=== PATIENT | male | born 1970 | race Caucasian/White ===

== ENCOUNTER 2019-09-21 12:18 | Emergency (ER) | payer MEDICAID ==
[~2019-09-21] VITALS: Ht 172.7 cm; Wt 100.0 kg
[~2019-09-21 12:18] MED LIST: HYDR-4383 PO; VALTREX PO
[2019-09-21 12:38] VITALS: BP 127/83
[2019-09-21] MEDS ORDERED: ACYC-202 PO (13:07)
[2019-09-21] MEDS ORDERED: MUPI22OI30 TOP (13:07)
== END 2019-09-21 13:15 | disposition home or self-care (01) ==
LOC: ER 12:19
DX: N48.89 Other specified disorders of penis (principal); G89.29 Other chronic pain; Z98.890 Other specified postprocedural states; Z88.5 Allergy status to narcotic agent; Z79.899 Other long term (current) drug therapy
CPT/HCPCS: 99281

== ENCOUNTER 2021-07-29 08:56 | Emergency (ER) | payer MEDICAID ==
[~2021-07-29] VITALS: Ht 185.4 cm; Wt 104.5 kg
[~2021-07-29 08:56] MED LIST changes: +LIDOcaine 1% W/epiNEPHrine 1:100,000 20ml vial ONE
[2021-07-29] MEDS ORDERED: ondansetron/PF 4mg/2ml inj IV ONE (09:25)
[2021-07-29] MEDS ORDERED: iohexol 300mg/ml 100ml inj. ONE (09:33)
[2021-07-29] MEDS ORDERED: ibuprofen tablet 400 MG TABLET PO ONE (11:10)
[2021-07-29 11:30] VITALS: BP 152/108
== END 2021-07-29 11:37 | disposition home or self-care (01) ==
LOC: ER 08:57
DX: S01.81XA Laceration without foreign body of other part of head, initial encounter (principal); S01.511A Laceration without foreign body of lip, initial encounter; G89.29 Other chronic pain; Z98.890 Other specified postprocedural states; Z88.5 Allergy status to narcotic agent; Z79.899 Other long term (current) drug therapy; W19.XXXA Unspecified fall, initial encounter; Y93.89 Activity, other specified; Y92.89 Other specified places as the place of occurrence of the external cause; Y99.8 Other external cause status
CPT/HCPCS: 12013; 70450; 70486; 71260; 72040; 74177; 99285; Q9967

== ENCOUNTER 2021-08-04 15:30 | Emergency (ER) | payer MEDICAID ==
[~2021-08-04] VITALS: Ht 185.4 cm; Wt 104.5 kg
[~2021-08-04 15:30] MED LIST changes: -LIDOcaine 1% W/epiNEPHrine 1:100,000 20ml vial ONE
[2021-08-04 15:42] VITALS: BP 127/81
== END 2021-08-04 16:15 | disposition home or self-care (01) ==
LOC: ER 15:30
DX: S01.81XD Laceration without foreign body of other part of head, subsequent encounter (principal); G89.29 Other chronic pain; M54.9 Dorsalgia, unspecified; Z48.00 Encounter for change or removal of nonsurgical wound dressing; X58.XXXD Exposure to other specified factors, subsequent encounter
CPT/HCPCS: 99281

== ENCOUNTER 2022-05-29 09:18 | Emergency (ER) | payer MEDICAID ==
[~2022-05-29] VITALS: Ht 182.9 cm; Wt 110.5 kg
[2022-05-29] MEDS ORDERED: CIPR7.5D EACH EAR (10:16)
[2022-05-29 10:19] VITALS: BP 167/112
== END 2022-05-29 10:25 | disposition home or self-care (01) ==
LOC: ER 09:19
DX: H66.91 Otitis media, unspecified, right ear (principal); G89.29 Other chronic pain; M54.9 Dorsalgia, unspecified; Z88.5 Allergy status to narcotic agent; Z79.2 Long term (current) use of antibiotics; Z79.899 Other long term (current) drug therapy
CPT/HCPCS: 99283

== ENCOUNTER 2025-01-14 12:40 | Emergency (ER) | payer MEDICAID ==
[~2025-01-14] VITALS: Ht 182.9 cm; Wt 96.4 kg
[~2025-01-14 12:40] MED LIST changes: +CIPR7.5D EACH EAR
[2025-01-14 16:53] VITALS: TEMP 97.3
[2025-01-14 17:33] VITALS: BP 122/76; PULSE 91; RESP 16; O2SAT 98
== END 2025-01-14 17:35 | disposition home or self-care (01) ==
LOC: ER 12:40
DX: K45.8 Other specified abdominal hernia without obstruction or gangrene (principal); F17.200 Nicotine dependence, unspecified, uncomplicated; G89.29 Other chronic pain; M54.9 Dorsalgia, unspecified; Z88.5 Allergy status to narcotic agent; Z79.899 Other long term (current) drug therapy; Z98.890 Other specified postprocedural states
CPT/HCPCS: 74176; 99284

== ENCOUNTER 2025-02-05 16:50 | Emergency (ER) | payer MEDICAID ==
[~2025-02-05] VITALS: Ht 182.9 cm; Wt 87.5 kg
[2025-02-05 17:02] VITALS: TEMP 97.6
[2025-02-05 19:57] LABS: BASOPHILS # (AUTO) 0.1 X10'3 (0-0.2); BASOPHILS % (AUTO) 0.9 % (0-1); EOSINOPHILS # (AUTO) 0.4 X10'3 (0-0.9); EOSINOPHILS % (AUTO) 4.1 % (0-6); HEMATOCRIT 45.1 % (42.0-52.0); HEMOGLOBIN 15.3 g/dl (14.0-17.9); LYMPHOCYTES # (AUTO) 2.4 X10'3 (1.1-4.8); MEAN CORPUSCULAR HEMOGLOBIN 30.4 PG (27.0-31.0); MEAN CORPUSCULAR VOLUME 89.5 FL (78-98); MEAN PLATELET VOLUME 9.6 FL (7.4-10.4); MONOCYTES # (AUTO) 0.7 X10'3 (0-0.9); MONOCYTES % (AUTO) 7.6 % (2-12); NEUTROPHILS # (AUTO) 5.4 X10'3 (1.8-7.7); NEUTROPHILS % (AUTO) 60.4 % (42-75); PLATELET COUNT 242 X10'3 (140-440); RED BLOOD COUNT 5.04 X10'6 (4.70-6.10); RED CELL DISTRIBUTION WIDTH 13.8 % (11.5-14.5)
[2025-02-05 20:09] LABS: ALANINE AMINOTRANSFERASE 37 U/L (12-78); ALBUMIN/GLOBULIN RATIO 1.1 (1.1-1.5); ALKALINE PHOSPHATASE 109 IU/L (46-116); ANION GAP 7 (8-16); BILIRUBIN,TOTAL 0.4 MG/DL (0.1-1.0); BLOOD UREA NITROGEN 14 MG/DL (7-18); BUN/CREATININE RATIO 16.5 (10.0-20.0); CHLORIDE 109 MMOL/L (99-107); CREATININE 0.85 MG/DL (0.60-1.10); GLUCOSE 95 MG/DL (70-104); SODIUM 145 MMOL/L (135-145); TOTAL CARBON DIOXIDE 29.1 MMOL/L (24-32); TOTAL PROTEIN 7.7 G/DL (6.4-8.2); eCRCL 108 ML/MIN; eGFR > 90 ML/MIN
[2025-02-05 20:17] LABS: ASPARTATE AMINO TRANSFERASE 29 U/L (10-37); POTASSIUM 4.4 MMOL/L (3.5-5.1)
[2025-02-05 21:51] VITALS: BP 131/78; PULSE 110; RESP 18; O2SAT 96
== END 2025-02-05 21:55 | disposition home or self-care (01) ==
LOC: ER 16:50
DX: K43.9 Ventral hernia without obstruction or gangrene (principal); F17.200 Nicotine dependence, unspecified, uncomplicated; G89.29 Other chronic pain; M54.9 Dorsalgia, unspecified; Z90.49 Acquired absence of other specified parts of digestive tract; Z88.5 Allergy status to narcotic agent; Z79.899 Other long term (current) drug therapy; Z98.890 Other specified postprocedural states
CPT/HCPCS: 36415; 80053; 85025; 99284

== ENCOUNTER 2025-02-27 05:42 | Inpatient (IN) | payer MEDICAID ==
--- NOTE | 2025-02-25 15:36 | ELECTROCARDIOGRAPH REPORT ---
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 GRICELDA Millan Measurements Intervals [place] Rate: 79 P: 49 CA: 162 QRS: -35 QRSD: 99 T: 36 QT: 371 QTc: 426 Interpretive Statements Sinus rhythm Probable left atrial enlargement Abnormal R-wave progression, early transition Inferior infarct, old Electronically Signed On 02-25-2025 17:38:[address] GRICELDA Millan Please click the below link to view image of tracing.
[2025-02-25 16:07] LABS: BASOPHILS # (AUTO) 0.1 X10'3 (0-0.2); BASOPHILS % (AUTO) 1.1 % (0-1); EOSINOPHILS # (AUTO) 0.3 X10'3 (0-0.9); EOSINOPHILS % (AUTO) 4.2 % (0-6); LYMPHOCYTES % (AUTO) 26.2 % (21-51); MEAN CORPUSCULAR HEMOGLOBIN 29.9 PG (27.0-31.0); MEAN CORPUSCULAR HGB CONC 33.6 g/dL (33.0-36.5); MEAN CORPUSCULAR VOLUME 89.1 FL (78-98); MEAN PLATELET VOLUME 9.2 FL (7.4-10.4); MONOCYTES # (AUTO) 0.7 X10'3 (0-0.9); MONOCYTES % (AUTO) 9.9 % (2-12); NEUTROPHILS # (AUTO) 4.4 X10'3 (1.8-7.7); NEUTROPHILS % (AUTO) 58.6 % (42-75); PRE OP HEMATOCRIT 46.7 % (42.0-52.0); PRE OP HEMOGLOBIN 15.7 g/dL (14.0-17.9); PRE OP PLATELET COUNT 279 X10'3 (140-440); PRE OP WHITE BLOOD COUNT 7.5 10'3 (4.8-10.8); RED BLOOD COUNT 5.24 X10'6 (4.70-6.10); RED CELL DISTRIBUTION WIDTH 13.7 % (11.5-14.5)
[2025-02-25 16:09] LABS: BILIRUBIN,URINE NEGATIVE (Neg); CLARITY,URINE CLEAR (Clear); COLOR,URINE YELLOW (Yellow); GLUCOSE, URINE NEGATIVE (Neg); KETONES,URINE NEGATIVE (Neg); LEUKOCYTE ESTERASE ,URINE NEGATIVE (Neg); NITRITES, URINE NEGATIVE (Neg); OCCULT BLOOD,URINE NEGATIVE (Neg); PH,URINE 5.5 (4.8-8.0); PROTEIN,URINE NEGATIVE (Neg); UROBILINOGEN,URINE 0.2 E.U/dL (0.2-1.0)
[2025-02-25 16:14] LABS: UA COLLECTION TYPE CLN CATCH MIDSTREAM
[2025-02-25 16:24] LABS: PRE OP PROTIME 10.6 SECONDS (9.0-12.0)
[2025-02-25 16:31] LABS: ALBUMIN 3.9 G/DL (3.4-5.0); ALKALINE PHOSPHATASE 113 IU/L (46-116); BLOOD UREA NITROGEN 16 MG/DL (7-18); BUN/CREATININE RATIO 17.6 (10.0-20.0); CALCIUM 9.1 MG/DL (8.5-10.1); CHLORIDE 105 MMOL/L (99-107); CREATININE 0.91 MG/DL (0.60-1.10); PRE OP ALT 40 U/L (30-65); PRE OP ANION GAP 10 (8-16); PRE OP AST 18 U/L (10-37); PRE OP BILIRUB, TOTAL 0.3 MG/DL (0.0-1.0); PRE OP GLUCOSE 80 MG/DL (70-104); PRE OP SODIUM 144 MMOL/L (135-145); TOTAL CARBON DIOXIDE 29.5 MMOL/L (24-32); TOTAL PROTEIN 7.7 G/DL (6.4-8.2); eGFR 86 ML/MIN
[~2025-02-27] VITALS: Ht 182.9 cm; Wt 105.1 kg
[2025-02-27] VITALS (27 sets, daily range): BP systolic 105–148; BP diastolic 71–102; PULSE 79–111; RESP 11–28; TEMP 97.7–98.9; O2SAT 90–98
[2025-02-27] MEDS: ceFAZolin 2gm in dextrose, iso 50 ML IV ONE (05:30)
[~2025-02-27 05:42] MED LIST changes: -CIPR7.5D EACH EAR; -HYDR-4383 PO; +NO HOME MEDS; -VALTREX PO
[2025-02-27] MEDS ORDERED: BUPIVAcaine 2.5mg/ml inj 50ml vial (contains preservative) ONE (06:44)
--- NOTE | 2025-02-27 06:47 | RADIOLOGY REPORT ---
EXAM: DI CHEST,SINGLE VIEW HISTORY: CXR - PRE-OP COMPARISON: None TECHNIQUE: Portable AP view of the chest was performed. FINDINGS: No pneumothorax, consolidative infiltrates, or pulmonary edema. Emphysematous changes are better lupis acterized on prior CT scan. The heart is not enlarged. There is thoracic degenerative disc disease. IMPRESSION: Emphysema without evidence of acute intrathoracic process.
[2025-02-27] MEDS: famotidine 20mg tablet PO ONE (06:57)
[2025-02-27] MEDS: ringers solution, lacted 1,000 ML IV SCH ×2 (06:58→08:15)
[2025-02-27] MEDS ORDERED: midazolam 1 mg/ML 2ml injection ONE (08:02)
[2025-02-27] MEDS ORDERED: fentaNYL /PF 50mcg/ml 5ml ampule ONE (08:03)
[2025-02-27] MEDS ORDERED: propofol inj 20 ML IV ONE (08:03)
[2025-02-27] MEDS ORDERED: rocuronium 10mg/ml inj IV ONE ×2 (08:05→11:06)
[2025-02-27] MEDS ORDERED: ondansetron/PF 4mg/2ml inj IV PRN ×2 (08:15→12:15)
[2025-02-27] MEDS ORDERED: hydrALAZINE 20mg/ml inj. IV PRN (08:15)
[2025-02-27] MEDS ORDERED: labetalol 20mg/4ml (5mg/ml) syringe IV PRN (08:15)
[2025-02-27] MEDS ORDERED: HYDROmorphone/PF 0.2 MG/ML SYRINGE IV PRN (08:15)
[2025-02-27] MEDS ORDERED: meperidine/PF 25mg/ml syringe IV PRN (08:15)
--- NOTE | 2025-02-27 08:28 | RADIOLOGY REPORT ---
Exam: CT CT ABDOMEN PELVIS History: Pain Comparison Study: CT CT ABDOMEN PELVIS on DOS: 01/14/25 Technique: Multidetector spiral CT of the abdomen was performed from lung bases to pubic symphysis. I maging was performed without IV contrast. Axial, coronal and sagittal multiplanar reformats were obta ined from the axial data set by the technologist. Radiation Dose : 1. Abdomen/Pelvis: CTDIvol 33.6 mGy, DLP 1723.1 mGy*cm. Findings: Evaluation of solid organs is limited due to lack of intravenous contrast use. Lung Bases: No acute or significant lung base finding. Normal heart size. No pleural or pericardial effusion. Liver: The liver is normal in size. No focal lesions. Gallbladder and Biliary Tree: Unremarkable Spleen: Unremarkable Pancreas: The pancreas is grossly normal in appearance. Adrenal Glands: Unchanged left adrenal adenoma measures 3.2 cm. Right adrenal gland is unremarkable. Kidneys: Kidneys are grossly normal without calculi or hydronephrosis. Bladder: Grossly unremarkable for degree of distention. Bowel: The stomach is grossly normal in appearance. Small bowel and colon are normal in caliber and d istribution. The appendix is not visualized; however, no secondary findings of acute appendicitis brian ntified. Ascites: Absent Lymphadenopathy: No mesenteric, retroperitoneal or periportal lymphadenopathy. Abdominal Wall and Mesentery: Moderate fat and bowel containing supraumbilical hernia. Vasculature: The visualized abdominal aorta is normal in size and caliber. Evaluation of abdominal a nd pelvic vessels is limited due to lack of intravenous contrast. Pelvic Organs: Unremarkable Musculoskeletal: No aggressive focal bony lesions, acute fractures or dislocation. Lumbosacral spinal fixation hardware. IMPRESSION: Moderate fat and bowel containing supraumbilical midline hernia.
[2025-02-27] MEDS ORDERED: sevoflurane 250ml liquid IH ONE (08:53)
[2025-02-27] MEDS ORDERED: dexamethasone sod phosphate 4mg/ml inj. ONE (09:25)
[2025-02-27] MEDS: BUPIVAcaine/PF 2.5 mg/ml (0.25%) 30ml vial IJ ONE (09:37)
[2025-02-27] MEDS ORDERED: ondansetron/PF 4mg/2ml inj ONE (11:06)
[2025-02-27] MEDS ORDERED: glycopyrrolate 0.2mg/ml inj ONE (11:22)
[2025-02-27] MEDS ORDERED: neostigmine methylsulfate 1 MG/ML 10ml vial ONE (11:22)
[2025-02-27] MEDS ORDERED: acetaminophen 1,000mg/100ml IV 100 ML IV ONE (11:23)
[2025-02-27] MEDS: ketorolac trometh 30MG/ML vial 30 MG/ML VIAL IV ONE (12:11)
[2025-02-27] MEDS: HYDROmorphone/PF 0.2 MG/ML SYRINGE IV PRN (12:11)
[2025-02-27] MEDS: morphine 2 MG/ML inj. syringe IV PRN (12:12)
--- NOTE | 2025-02-27 12:12 | OPERATIVE REPORT ---
Operative Report Providers to CC ~ Date of Procedure: February 27, 2025 Pre-Operative Diagnosis: incisional hernia Post-Operative Diagnosis SAME as PRE-Op Procedure Performed repair with mesh-8 cm Surgeon: deisy Oriental Rug Repairer guicho Type of Anesthesia: General Findings: extensive adhesions Estimated Blood Loss: min Specimen Removed: none NICKY ROBERTO MD February 27, 2025 12:12
[2025-02-27] MEDS ORDERED: HYDROmorphone inj. 0.5 MG/0.5 ML DISP.SYRIN IV PRN (12:15)
[2025-02-27] MEDS ORDERED: naloxone 0.4 mg/ml inj IV PRN (12:15)
[2025-02-27] MEDS: HYDROcodone/acetaminophen 10/325mg tab PO PRN (12:40)
[2025-02-27] MEDS: morphine 4 MG/ML inj SYRINge IV PRN (12:44)
--- NOTE | 2025-02-27 13:00 | OPERATIVE REPORT ---
DATE OF SURGERY: 02/27/2025 DICTATING PHYSICIAN: Faustino Elizondo MD PREOPERATIVE DIAGNOSIS: An 8 cm incisional hernia. POSTOPERATIVE DIAGNOSIS: An 8 cm incisional hernia. PROCEDURE PERFORMED: Open repair of incisional hernia with mesh. SURGEON: Faustino Elizondo MD GREEN PIPEFITTER: None. ANESTHESIA: General/Dr. Powers. DRAINS: None. INDICATIONS FOR OPERATION: A 55-year-old male status post laparotomy, ruptured appendicitis, developed a large incisional hernia and taken to surgery for repair. INTRAOPERATIVE FINDINGS: The patient had an 8 cm defect. DESCRIPTION OF PROCEDURE: The patient was placed supine on the operating table. After induction of general anesthesia and placement of an tube, the abdomen was prepped and draped. A subxiphoid incision was then made and Chaz port placed using an open technique. Pneumoperitoneum was begin by insufflation of CO2. Additional ports were placed under laparoscopic in the left lower abdomen. Robot was then brought to the field. Camera port docked. Camera placed, camera targeted. Ports were then docked and instruments were placed. The patient had extensive adhesions and taken down robotically. Large vascular defect was identified. The fascia was closed with multiple sutures of 0 V-Loc. After closure of the defect, a 10 x 17 piece of mesh was entered into the abdominal cavity, was secured in place with a running suture of 2-0 V-Loc and 0 V-Loc. Abdomen was copiously irrigated with large amount of antibiotic-containing solution. Ports were then removed with no evidence of active bleeding. Final port and camera withdrawn. Pneumoperitoneum was evacuated. Wounds were closed in layers, skin closed with clips. Dressings applied. The patient was transferred to recovery in stable condition. Faustino Elizondo MD TID: [id number] RECEIPT: [id number] KB/VUDavid
[2025-02-27] MEDS: ceFOXitin 1 GM/D5W 50mL IVPB 50 ML IV SCH (16:54)
[2025-02-27] MEDS: potassium CL 20mEq in D5-1/2NS 1,000 ML IV SCH (16:54)
[2025-02-27] MEDS: ketorolac trometh 30MG/ML vial 30 MG/ML VIAL IV PRN (17:07)
[2025-02-28] VITALS (7 sets, daily range): BP systolic 106–119; BP diastolic 68–80; PULSE 60–91; RESP 16–20; TEMP 97.2–98.2; O2SAT 93–97
[2025-02-28 10:34] LABS: BASOPHILS % (AUTO) 0.3 % (0-1); EOSINOPHILS # (AUTO) 0.1 X10'3 (0-0.9); EOSINOPHILS % (AUTO) 0.6 % (0-6); HEMATOCRIT 37.3 % (42.0-52.0); HEMOGLOBIN 12.5 g/dl (14.0-17.9); LYMPHOCYTES # (AUTO) 1.5 X10'3 (1.1-4.8); LYMPHOCYTES % (AUTO) 12.1 % (21-51); MEAN CORPUSCULAR HEMOGLOBIN 29.8 PG (27.0-31.0); MEAN CORPUSCULAR HGB CONC 33.4 g/dL (33.0-36.5); MEAN CORPUSCULAR VOLUME 89.3 FL (78-98); MEAN PLATELET VOLUME 9.3 FL (7.4-10.4); MONOCYTES # (AUTO) 1.1 X10'3 (0-0.9); MONOCYTES % (AUTO) 8.9 % (2-12); NEUTROPHILS # (AUTO) 9.9 X10'3 (1.8-7.7); NEUTROPHILS % (AUTO) 78.1 % (42-75); PLATELET COUNT 227 X10'3 (140-440); RED BLOOD COUNT 4.18 X10'6 (4.70-6.10); RED CELL DISTRIBUTION WIDTH 13.7 % (11.5-14.5); WHITE BLOOD COUNT 12.7 X10'3 (4.5-11.0)
--- NOTE | 2025-02-28 17:22 | PROGRESS NOTE ---
Progress Note ID Providers to CC ~ Progress Note Progress Note: doing well/cont supportive care NICKY ROBERTO MD February 28, 2025 17:22
[2025-03-01 06:52] VITALS: BP 107/65; PULSE 56; RESP 16; TEMP 96.6; O2SAT 96
[2025-03-01 09:29] VITALS: RESP 16
[2025-03-01 10:00] VITALS: BP 125/78; PULSE 80; RESP 16; TEMP 97.8; O2SAT 98
[2025-03-01 11:18] LABS: BASOPHILS % (AUTO) 0.4 % (0-1); EOSINOPHILS # (AUTO) 0.2 X10'3 (0-0.9); HEMATOCRIT 37.1 % (42.0-52.0); HEMOGLOBIN 12.4 g/dl (14.0-17.9); LYMPHOCYTES # (AUTO) 1.7 X10'3 (1.1-4.8); LYMPHOCYTES % (AUTO) 19.5 % (21-51); MEAN CORPUSCULAR HEMOGLOBIN 30.2 PG (27.0-31.0); MEAN CORPUSCULAR HGB CONC 33.5 g/dL (33.0-36.5); MEAN CORPUSCULAR VOLUME 90.3 FL (78-98); MEAN PLATELET VOLUME 9.4 FL (7.4-10.4); MONOCYTES # (AUTO) 0.8 X10'3 (0-0.9); MONOCYTES % (AUTO) 9.4 % (2-12); NEUTROPHILS # (AUTO) 5.9 X10'3 (1.8-7.7); NEUTROPHILS % (AUTO) 68.7 % (42-75); PLATELET COUNT 199 X10'3 (140-440); RED BLOOD COUNT 4.11 X10'6 (4.70-6.10); WHITE BLOOD COUNT 8.7 X10'3 (4.5-11.0)
--- NOTE | 2025-03-01 11:42 | PROGRESS NOTE ---
Progress Note ID Providers to CC ~ Progress Note Progress Note: doing well/advance po NICKY ROBERTO MD March 01, 2025 11:42
[2025-03-01] MEDS: magnesium hydroxide 30ml (MOM) UD suspension PO ONE (13:32)
[2025-03-01 18:00] VITALS: BP 111/80; PULSE 75; RESP 18; TEMP 97.8; O2SAT 95
[2025-03-01] MEDS: magnesium hydroxide 30ml (MOM) UD suspension PO SCH (20:14)
[2025-03-01] MEDS: enoxaparin 40mg/0.4ml syringe SUBCUT SCH (20:15)
[2025-03-01 22:00] VITALS: BP 139/93; PULSE 81; RESP 20; TEMP 97.6; O2SAT 96
[2025-03-01 23:00] VITALS: BP 109/71
[2025-03-02 06:00] VITALS: BP 195/68; PULSE 76; RESP 22; TEMP 97.9; O2SAT 93
--- NOTE | 2025-03-02 13:28 | PROGRESS NOTE ---
Progress Note ID Providers to CC ~ Progress Note Progress Note: doing well/dc NICKY ROBERTO MD March 02, 2025 13:28
== END 2025-03-02 10:25 | disposition home or self-care (01) | DRG 227 ==
LOC: PAS 05:42 → SUR 3N 12:19 → OBSVTOIN 12:19 → SUR 3N 23:31 → OBSVTOIN 02-28 10:55 → INTOOBSV 02-28 10:55
PROVIDERS: ADMIT Surgery; ATTEND Surgery
PROC: 3E0M45Z Introduction of Adhesion Barrier into Peritoneal Cavity, Percutaneous Endoscopic Approach (ICD-10-PCS; 2025-02-27)
PROC: 8E0W4CZ Robotic Assisted Procedure of Trunk Region, Percutaneous Endoscopic Approach (ICD-10-PCS; 2025-02-27)
PROC: 0WUF4JZ Supplement Abdominal Wall with Synthetic Substitute, Percutaneous Endoscopic Approach (ICD-10-PCS; principal; 2025-02-27 08:53)
DX: K43.2 Incisional hernia without obstruction or gangrene (principal); K66.0 Peritoneal adhesions (postprocedural) (postinfection); Z79.899 Other long term (current) drug therapy
CPT/HCPCS: 36415; 71045; 74176; 80053; 81003; 82948; 85025; 85610; 85730; 86885; 86900; 86901; 87081; 93005; A4215; A4615; A4618; C1758; C1781; G0378; J0131; J0690; J0694; J1100; J1171; J1650; J1885; J2250; J2270; J2405; J2704; J2710; J3010; J3480; J3490; J7120

== ENCOUNTER 2025-03-03 18:27 | Emergency (ER) | payer MEDICAID ==
[~2025-03-03] VITALS: Ht 182.9 cm; Wt 105.7 kg
[2025-03-03 18:45] VITALS: BP 132/85; PULSE 84; RESP 19; O2SAT 96
--- NOTE | 2025-03-03 19:06 | Physician Documentation ---
History of Present Illness ~ Chief Complaint: Arm Pain Stated Complaint: ARM IS SWOLLEN Time Seen by MD: 19:47 Primary Medical Doctor: None HPI This 55-year-old male presents with one day of pain and swelling to his left upper arm just proximal to his AC after being hospitalized for approximately four days, pain and swelling is near the area that he had IV. Patient reports no fever, chills, or other systemic symptoms. Tetanus within 5 years: No Medication Reconciliation Allergies: Coded Allergies: codeine phosphate (Verified Allergy, Unknown, HIVES, 02/27/25) TOLERATED HYDROMORPHONE AND MORPHINE 08/2016 Miscellaneous Medications Home Med List (No Home Medications), (Reported) Discontinued Medications Ciprofloxacin HCl/Dexameth (Ciprodex Otic Suspension), 2 DROP EACH EAR QID Discontinued Reason: patient no longer taking Hydrocodone/Acetaminophen ([employer] 5-325 Tablet), 1 TAB PO TID PRN Discontinued Reason: patient no longer taking [Valtrex], PO for CANCER SORE, (Reported) Discontinued Reason: patient no longer taking Past Medical History Past Medical History: Chronic Back Pain Past Surgical History: abdominal surgery, orthopedic surgeries Alcohol Use: None Drug Use: none Lives with: Family Lives In: Home Occupation: employed Review of Systems ROS Left upper arm pain and swelling as stated above in the HPI, otherwise all sys tems are reviewed and negative. Physical Exam Vital Signs: Temperature: 98.5, Source: Oral, Heart Rate: 84, Respiratory Rate: 19, BP: 132/85, Pulse Oximetry: 96, Weight: 105.730 Oxygen Flow Rate: 0 Physical Exam VITALS: Reviewed and as above. GENERAL: Alert, nontoxic appearing, no apparent distress. RESPIRATORY: No increased work of breathing, no respiratory distress, speaking in full clear sentences SKIN: This is an approximately 2 cm x 3 cm tender swollen area to the anterior upper arm just proximal to the AC joint, ecchymosis to the anterior proximal forearm just distal to the AC joint, Progress Results/Orders Results/Orders Vital Signs 03/03/25 03/03/25 18:45 20:27 Temp 98.5 98.5 Pulse 84 Resp 19 B/P (MAP) 132/85 Pulse Ox 96 O2 Flow Rate 0 Medical Decision Making Findings This 55-year-old male presented with pain and swelling to his upper left arm in the area that an IV had been placed while he was inpatient for approximately fo ur days for a hernia surgery, on physical exam there was an area of pain and swelling without erythema or ecchymosis, though there was some ecchymosis distal to the injury in the area of another IV start. A point of care ultrasound of the area was performed which demonstrated a superficial venous thrombus. As the venous thrombus is superficial and occupies approximately a 3 cm portion of the vein and appears to be not fully occlusive as there was blood flow past the location of the thrombus and the area of thrombus was partially compressible, this is considered uncomplicated and patient will be managed with home care i nstructions to include frequent warm compresses until resolution of pain. Patient was provided return to care precautions which she verbalized understanding of. General Diff Dx:Considerations: Include: Contusion, Fracture, Other (Sarah Beth lulitis, abscess, retained foreign body, DVT) Departure Disposition: HOME / SELF CARE / HOMELESS Impression: Primary Impression: Superficial venous thrombosis of left upper extremity Condition: Improved Discharge Instructions: Phlebitis, [id number] Additional Instructions: Please use warm compresses on area, monitor the area for worsening pain or swelling. Please follow up with your primary care provider in the next few days. Please return to the emergency department for any new or worsening concerning symptoms including but not limited to increased pain and swelling to the area, increased readiness to the area, if you develop a fever, or if you have any chest pain or shortness of breath. Referrals: NO PRIMARY CARE PROVIDER (PCP) Education Educated: Patient Educated regarding: diagnosis, treatment, prognosis, need for follow up Signature Scribe Signature: No scribe Attestation: The note accurately reflects work and decisions made by me.SHABNAM Russo 03/04/25 02:15 PATTI DAMIAN March 03, 2025 19:06
[2025-03-03 20:27] VITALS: TEMP 98.5
== END 2025-03-03 20:41 | disposition home or self-care (01) ==
LOC: ER 18:27
DX: I82.612 Acute embolism and thrombosis of superficial veins of left upper extremity (principal); Z88.5 Allergy status to narcotic agent
CPT/HCPCS: 99284